=== PATIENT | male | born 1940 | race Asian ===

== ENCOUNTER 2018-01-03 18:00 | Inpatient (IN) | payer OTHER, MEDICAID ==
[~2018-01-03] VITALS: Ht 167.6 cm; Wt 74.7 kg
[2018-01-03 18:50] LABS: Basophils # (auto) 0.1 uL; Basophils % (auto) 1.1 % (0.0-2.0); Eosinophils # (auto) 0.2 uL; Eosinophils % (auto) 2.2 % (0.0-7.0); Hematocrit 46.8 % (41.0-53.0); Hemoglobin 15.5 g/dL (13.5-17.5); Lymphocytes # (auto) 1.3 uL; Lymphocytes % (auto) 14.6 % (10.0-50.0); Mean Corpuscular Hemoglobin 30.9 pg (28.0-32.0); Mean Corpuscular Volume 93.6 fL (80.0-100.0); Monocytes # (auto) 0.6 uL; Neutrophils # (auto) 6.6 uL; Neutrophils % (auto) 75.1 % (37.0-80.0); Nucleated Red Blood Cells % 0.1 %; Platelet Count (auto) 195 10^3/uL (140-450); Red Cell Distribution Width 15.4 % (11.8-14.3); White Blood Cell 8.8 10^3/uL (4.4-10.8)
[2018-01-03 19:01] LABS: Albumin 3.2 g/dL (3.4-5.0); BUN/Creatinine Ratio 7.6; Bilirubin, Total 1.3 mg/dL (0.2-1.0); Calcium 8.4 mg/dL (8.5-10.1); Potassium 3.6 mmol/L (3.5-5.1); Total Protein 6.8 g/dL (6.4-8.2)
[2018-01-03] MEDS ORDERED: FUROSEMIDE 20 MG/2 ML VIAL IV ONE (20:00)
[2018-01-03 21:06] LABS: INR 1.09 (0.9-1.15); Partial Thromboplastin Time 25.7 sec (22.64-33.71); Prothrombin Time 11.9 sec (9.37-12.3)
[2018-01-04] VITALS (7 sets, daily range): BP systolic 113–156; BP diastolic 65–94
[2018-01-04] MEDS ORDERED: ACETAMINOPHEN 325 MG TAB PO PRN (01:00)
[2018-01-04] MEDS ORDERED: MORPHINE SULFATE 4 MG/ML SYR/VIAL IV PRN (01:00)
[2018-01-04] MEDS ORDERED: ONDANSETRON HCL 4 MG/2 ML VIAL IV PRN (01:00)
[2018-01-04] MEDS ORDERED: NITROGLYCERIN 0.4 MG SL TAB SL PRN (01:00)
[2018-01-04] MEDS ORDERED: HYDROcodone-ACET 5/325MG TAB PO PRN (01:00)
[2018-01-04] MEDS ORDERED: cloNIDine HCL 0.1 MG TAB PO PRN (01:00)
[2018-01-04] MEDS ORDERED: TEMAZEPAM 15 MG CAP PO PRN (01:00)
[2018-01-04] MEDS ORDERED: FUROSEMIDE 20 MG/2 ML VIAL IV SCH (06:00)
[2018-01-04] MEDS: ALBUTEROL SULF 2.5 MG/0.5ML(0.5%) NEB SOLN NEB PRN ×2 (06:47→15:02)
[2018-01-04] MEDS: APIXABAN 5 MG TAB PO SCH (09:57)
[2018-01-04] MEDS: FAMOTIDINE 20 MG TAB PO SCH ×2 (09:58→21:47)
[2018-01-04] MEDS: METOPROLOL TARTRATE 25 MG TAB PO SCH ×2 (09:58→21:46)
[2018-01-04] MEDS: ASPirin 81 mg TAB PO SCH (09:59)
[2018-01-04] MEDS: ISOSORBIDE MONONITRATE 60 MG TAB PO SCH (09:59)
[2018-01-04] MEDS ORDERED: ATOR40TA52 PO (11:25)
[2018-01-04] MEDS ORDERED: OMEGCAP28 OR (11:25)
[2018-01-04] MEDS ORDERED: ISOS30TA4 PO (11:25)
[2018-01-04] MEDS ORDERED: METO25TA5 PO (11:25)
[2018-01-04] MEDS ORDERED: APIX5TAB OR (11:25)
[2018-01-04] MEDS ORDERED: LOSA25TA9 PO (11:25)
[2018-01-04] MEDS ORDERED: ACET1CAP14 PO (11:25)
[2018-01-04] MEDS ORDERED: CHOL1TAB42 PO (11:25)
[2018-01-04] MEDS ORDERED: CALC-239 PO (11:25)
[2018-01-04] MEDS ORDERED: FURO40TA4 PO (11:25)
[2018-01-04] MEDS ORDERED: ESOM40CA39 PO (11:25)
[2018-01-04] MEDS: LOSARTAN POTASSIUM 25 MG TAB PO SCH (12:35)
[2018-01-04] MEDS ORDERED: guaiFENesin 200 MG/10 ML UD PO PRN (17:00)
[2018-01-04] MEDS: guaiFENesin 200 MG/10 ML UD PO PRN ×2 (19:00→19:42)
[2018-01-04] MEDS: FUROSEMIDE 40 MG/4 ML VIAL IV SCH (19:35)
[2018-01-04] MEDS ORDERED: ATORVASTATIN 20 MG TAB PO SCH (22:00)
[2018-01-05 05:00] VITALS: BP 123/73
[2018-01-05] MEDS: FUROSEMIDE 40 MG/4 ML VIAL IV SCH (06:00)
[2018-01-05 06:14] LABS: Basophils # (auto) 0.1 uL; Basophils % (auto) 0.8 % (0.0-2.0); Eosinophils # (auto) 0.4 uL; Eosinophils % (auto) 4.4 % (0.0-7.0); Hematocrit 46.3 % (41.0-53.0); Hemoglobin 15.1 g/dL (13.5-17.5); Lymphocytes # (auto) 1.6 uL; Lymphocytes % (auto) 17.1 % (10.0-50.0); Mean Corpuscular Hemoglobin 30.1 pg (28.0-32.0); Mean Corpuscular Hgb Conc. 32.5 g/dL (32.0-36.0); Mean Corpuscular Volume 92.6 fL (80.0-100.0); Monocytes # (auto) 0.8 uL; Monocytes % (auto) 8.4 % (0.0-12.0); Neutrophils # (auto) 6.4 uL; Neutrophils % (auto) 69.3 % (37.0-80.0); Nucleated Red Blood Cells % 0.1 %; Platelet Count (auto) 192 10^3/uL (140-450); Red Cell Distribution Width 15.6 % (11.8-14.3); White Blood Cell 9.3 10^3/uL (4.4-10.8)
[2018-01-05] MEDS ORDERED: INFLUENZA QUAD 2017-2018 0.5 ML SYRG IM ONE (06:15)
[2018-01-05] MEDS ORDERED: PNEUMOCOCCAL VACC POLYS 25 MCG/0.5 ML VIAL IM ONE (06:15)
[2018-01-05 06:59] LABS: Albumin 2.8 g/dL (3.4-5.0); Bilirubin, Total 1.7 mg/dL (0.2-1.0); Calcium 8.2 mg/dL (8.5-10.1); Potassium 4.3 mmol/L (3.5-5.1); Total Protein 6.5 g/dL (6.4-8.2)
[2018-01-05 07:30] VITALS: BP 132/71
[2018-01-05 09:00] VITALS: BP 132/91
[2018-01-05] MEDS: ASPirin 81 mg TAB PO SCH (10:00)
[2018-01-05] MEDS: APIXABAN 5 MG TAB PO SCH (10:27)
[2018-01-05] MEDS: LOSARTAN POTASSIUM 25 MG TAB PO SCH (10:27)
[2018-01-05] MEDS: FAMOTIDINE 20 MG TAB PO SCH (10:27)
[2018-01-05] MEDS: ISOSORBIDE MONONITRATE 60 MG TAB PO SCH (10:28)
[2018-01-05] MEDS: METOPROLOL TARTRATE 25 MG TAB PO SCH (10:28)
[2018-01-05 13:00] VITALS: BP 100/61
[2018-01-05 16:00] VITALS: BP 118/69
[2018-01-05 17:52] VITALS: BP 102/61
== END 2018-01-05 18:42 | disposition home or self-care (01) | DRG 291 ==
LOC: ER 18:04 → TELE 18:05 → TELE-WESTW 01-04 01:57
PROVIDERS: ADMIT Nurse Practitioner; ATTEND Internal Medicine
PROC: 4B02XSZ Measurement of Cardiac Pacemaker, External Approach (ICD-10-PCS; principal; 2018-01-04)
DX: I13.0 Hypertensive heart and chronic kidney disease with heart failure and stage 1 through stage 4 chronic kidney disease, or unspecified chronic kidney disease (principal); I50.33 Acute on chronic diastolic (congestive) heart failure; I48.2 Chronic atrial fibrillation; I44.7 Left bundle-branch block, unspecified; J43.9 Emphysema, unspecified; Z95.1 Presence of aortocoronary bypass graft; Z79.01 Long term (current) use of anticoagulants; E78.5 Hyperlipidemia, unspecified; I25.10 Atherosclerotic heart disease of native coronary artery without angina pectoris; G47.00 Insomnia, unspecified; N18.9 Chronic kidney disease, unspecified; I25.2 Old myocardial infarction; Z23 Encounter for immunization; Z95.0 Presence of cardiac pacemaker
CPT/HCPCS: 36415; 71046; 71250; 80053; 83880; 84484; 85025; 85379; 85610; 85730; 93005; 93306; 94640; 96374